=== PATIENT | female | born 2000 | race Native Hawaiian/Other Pacific Islander ===

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

== ENCOUNTER 2021-07-26 10:23 | Emergency (ER) | payer OTHER ==
[~2021-07-26] VITALS: Ht 167.6 cm; Wt 63.5 kg
[2021-07-26 10:37] VITALS: TEMP 98.7
[2021-07-26 11:58] VITALS: BP 110/70
== END 2021-07-26 11:59 | disposition home or self-care (01) ==
LOC: ED 10:23
DX: N39.0 Urinary tract infection, site not specified (principal); R20.0 Anesthesia of skin; Z60.9 Problem related to social environment, unspecified
CPT/HCPCS: 81000; 81025; 87086; 87088; 96372; 99283; J0696

== ENCOUNTER 2021-07-31 12:13 | Emergency (ER) | payer OTHER ==
[~2021-07-31] VITALS: Ht 167.6 cm; Wt 63.5 kg
[2021-07-31 12:15] VITALS: BP 115/53; TEMP 98
== END 2021-07-31 12:45 | disposition home or self-care (01) ==
LOC: ED 12:13
DX: Z53.29 Procedure and treatment not carried out because of patient's decision for other reasons (principal)
CPT/HCPCS: 99281

== ENCOUNTER 2021-09-28 17:58 | Emergency (ER) | payer BC ==
[~2021-09-28] VITALS: Ht 167.6 cm; Wt 63.5 kg
[2021-09-28 18:36] LABS: PLATELET COUNT 283 K/uL (152-353)
[2021-09-28 19:15] LABS: POTASSIUM 3.6 mmol/L (3.6-5.2)
[2021-09-28 20:12] VITALS: BP 107/36; TEMP 98.6
== END 2021-09-28 20:12 | disposition home or self-care (01) ==
LOC: ED 17:58
PROVIDERS: Emergency Medicine Emergency Medical Services
DX: O21.0 Mild hyperemesis gravidarum (principal); Z3A.01 Less than 8 weeks gestation of pregnancy
CPT/HCPCS: 36415; 80053; 81000; 83690; 84702; 85027; 96360; 96374; 96375; 99284; J2405; J3490

== ENCOUNTER 2021-09-30 15:58 | Outpatient (CLI) | payer BC ==
[2021-09-30 16:21] LABS: PLATELET COUNT 274 K/uL (152-353)
[2021-09-30 17:08] LABS: POTASSIUM 3.6 mmol/L (3.6-5.2)
== END 2021-09-30 19:18 | disposition home or self-care (01) ==
LOC: LABW 15:58
PROVIDERS: ATTEND Nurse Practitioner Family
DX: R11.2 Nausea with vomiting, unspecified (principal)
CPT/HCPCS: 36415; 80053; 82150; 83690; 85027

== ENCOUNTER 2021-10-01 17:09 | Observation (INO) | payer BC ==
[~2021-10-01] VITALS: Ht 167.6 cm; Wt 64.9 kg
[2021-10-01 17:56] VITALS: BP 97/57; TEMP 98.4; Ht 167.6 cm; Wt 64.9 kg
[2021-10-01 19:03] LABS: PLATELET COUNT 260 K/uL (152-353)
[2021-10-01 19:17] LABS: POTASSIUM 3.6 mmol/L (3.6-5.2)
[2021-10-01 20:00] VITALS: BP 115/49; TEMP 98.7
[2021-10-02] VITALS: BP 100/60; TEMP 98.9
[2021-10-02 04:00] VITALS: BP 90/40; TEMP 98.9
[2021-10-02 08:00] VITALS: BP 90/43; TEMP 99.2
[2021-10-02 09:22] LABS: PLATELET COUNT 203 K/uL (152-353)
[2021-10-02 09:31] LABS: POTASSIUM 3.3 mmol/L (3.6-5.2); SODIUM 139 mmol/L (136-145)
[2021-10-02 12:00] VITALS: BP 100/54; TEMP 98
[2021-10-02 16:00] VITALS: TEMP 98.8
[2021-10-02] MEDS ORDERED: PANTOPRAZOLE SO40 M1 PO (16:35)
[2021-10-02] MEDS ORDERED: PROM25TA52 PO (16:36)
== END 2021-10-02 17:03 | disposition home or self-care (01) ==
LOC: MED/SURG 17:09
PROVIDERS: ADMIT Family Medicine; ATTEND Family Medicine
DX: O21.0 Mild hyperemesis gravidarum (principal); E80.6 Other disorders of bilirubin metabolism; E86.0 Dehydration
CPT/HCPCS: 36415; 80053; 81000; 82150; 82248; 83605; 83690; 83735; 84100; 84702; 85027; 87040; 87635; 96361; 96366; 99220; G0378; G0379; U0003

== ENCOUNTER 2021-10-20 07:07 | Outpatient (CLI) | payer BC, OTHER ==
[~2021-10-20 07:07] MED LIST changes: +PANTOPRAZOLE SO40 M1 PO; +PROM25TA52 PO
[2021-10-20 08:01] LABS: PLATELET COUNT 289 K/uL (152-353)
[2021-10-20 08:24] LABS: POTASSIUM 3.9 mmol/L (3.6-5.2)
== END 2021-10-20 18:59 | disposition home or self-care (01) ==
LOC: LABW 07:07
PROVIDERS: ATTEND Internal Medicine Gastroenterology
DX: K76.0 Fatty (change of) liver, not elsewhere classified (principal)
CPT/HCPCS: 36415; 80048; 80074; 80076; 82103; 82172; 82247; 82390; 82465; 82525; 82728; 82947; 82977; 83010; 83516; 83540; 83550; 83883; 84450; 84460; 84466; 84478; 85027; 86038

== ENCOUNTER 2022-11-13 08:45 | Outpatient (CLI) | payer BC, OTHER ==
[2022-11-13 09:06] LABS: PLATELET COUNT 294 K/uL (152-353)
[2022-11-13 09:56] LABS: POTASSIUM 3.6 mmol/L (3.6-5.2)
== END 2022-11-13 18:52 | disposition home or self-care (01) ==
LOC: LABW 08:45
PROVIDERS: ATTEND Nurse Practitioner Family
DX: R11.2 Nausea with vomiting, unspecified (principal)
CPT/HCPCS: 36415; 80053; 82150; 83690; 85027

== ENCOUNTER 2023-04-13 08:39 | Outpatient (CLI) | payer BC, OTHER | END 2023-04-13 21:12 | disposition home or self-care (01) | LOC: LABW 08:39 | PROVIDERS: ATTEND Nurse Practitioner Family | DX: O36.80X1 Pregnancy with inconclusive fetal viability, fetus 1 (principal) | CPT/HCPCS: 36415; 84702 ==